=== PATIENT | female | born 1975 | race Caucasian/White ===

== ENCOUNTER → 2024-05-21 16:05 | Outpatient (REF) | payer OTHER, SELFPAY ==
[2024-05-21 17:12] LABS: Amylase 58 U/L (30-110); Lipase 57 U/L (23-300)
== END ==
LOC: REG 16:05
PROVIDERS: ATTENDING PHYSICIAN Nurse Practitioner Family
DX: R10.84 Generalized abdominal pain (principal)
CPT/HCPCS: 36415; 82150; 83690

== ENCOUNTER 2024-09-17 11:47 | Emergency (ER) | payer OTHER, SELFPAY ==
[2024-09-17 11:51] VITALS: BP 149/83
--- NOTE | 2024-09-17 12:11 | ED.GENMED ---
History of Present Illness
General
Chief Complaint: Abdominal Pain
Source: patient
Exam Limitations: none
Time Seen by Provider: 09/17/24 12:02
History of Present Illness
History of Present Illness:
49-year-old female with prior history ovarian cancer status post radiation, cholecystectomy appendectomy presents with abdominal pain bloating nausea and sour taste in her mouth. This started yesterday. 2 days ago she restarted her Mounjaro. She
had been off of it for quite some time. She is on the second dose. No blood in the stool. The pain is mainly in the upper abdomen. No other complaints at this time
Phy Exam
Physical Exam
Physical Exam:
General: Well-appearing female no acute respiratory distress
HEENT: Normocephalic atraumatic
Heart: Regular rate and rhythm
Lungs: Clear no wheeze
Abdomen soft tender to the upper abdomen and right mid abdomen. No guarding or rebound normal bowel sounds nondistended
Extremities: No cyanosis
Course
Orders/Labs/Results
Orders:
Orders
09/17/24 11:55
Electrocardiogram (*1) Urgent
Reason for Study: Abdominal Pain
EKG- Treatment ONCE
09/17/24 12:11
CT Abd/pelvis W Iv Cont Urgent
Comment:
Reason For Exam: abdominal pain
09/17/24 12:13
Ketorolac [Toradol] 15 mg IV NOW STA
09/17/24 12:19
Complete Blood Count/With Diff Urgent
Comprehensive Metabolic Panel Urgent
Lipase Urgent
Abnormal Lab Results
09/17/24
12:19
BUN 18 H mg/dl
(7-17)
Glucose 144 H mg/dl
(70-99)
AST 37 H U/L
(14-36)
ALT 50 H U/L
(0-35)
09/17/24 12:19
09/17/24 12:19
Vital Signs
Initial and Last Documented VS:
Initial Vital Signs
Temp Pulse Resp BP Pulse Ox
98.0 F 78 18 149/83 99
09/17/24 11:51 09/17/24 11:51 09/17/24 11:51 09/17/24 11:51 09/17/24 11:51
Last Documented Vital Signs
Temp Pulse Resp BP Pulse Ox
98.0 F 72 20 153/85 96
09/17/24 11:51 09/17/24 12:20 09/17/24 12:27 09/17/24 12:20 09/17/24 12:20
MDM/Problems Addressed
Differential Diagnosis Includes:
Abdominal pain nausea vomiting distention. Consider viral illness versus bowel versus adverse reaction to recently started Mounjaro. Will check lipase for pancreatitis.
Fluids ordered medicine ordered for pain and nausea. CT pending
*Critical Care Note
Total Time (30-74mins, 75-104mins- exclusive of procedures): Not Applicable
Update Note
Update Note:
Labs reviewed without significant finding. Lipase normal. CT negative. Patient feeling much better after Toradol and Zofran. Abdominal pain. Suspect possible adverse reaction to Mounjaro. Stable for discharge with follow-up
ED Attending Note
-
Portions of this chart may have been created with voice recognition software.� Occasional wrong word or��sound alike� substitutions may have occurred due to the inherent limitations of voice recognition software.
Discharge Plan
Departure
Patient Disposition: Home (Routine Discharge)
Date of Disposition: 09/17/24
Time of Disposition: 15:11
Patient with high blood pressure during this ER visit?: No
Discharge Problem:
Abdominal pain
Instructions: Abdominal Pain
Prescriptions:
No Action
alprazolam 0.25 mg Tablet
0.25 mg PO DAILY PRN (Reason: anxiety)
Rx Instructions:
03/11/2023, patient filled this medication on 09/23/2022 for 30 tablets according to PDMP.
escitalopram oxalate 20 mg Tablet
20 mg PO HS
glucosamine-chondroitin [Osteo Bi-Flex] 250-200 mg Tablet
2 tab PO HS
Visbiome 112.5 billion cell Capsule
1 cap PO HS
melatonin 10 mg Tablet
10 mg PO HS PRN (Reason: sleep)
Myrbetriq 50 mg Tablet Extended Release 24 Hr
50 mg PO HS
icosapent ethyl 1 gram Capsule
4 g PO HS
cv-su-gvwv-FA-Ca carb-vit K 18 mg iron-400 mcg-500 mg Tablet
1 tab PO HS
magnesium oxide 400 mg magnesium Tablet
400 mg PO HS
Medical Marijuana
0 inh PO DAILY
Rx Instructions:
03/11/2023, patient smokes and vapes medical marijuana daily and does not keep track of how many puffs they take; patient smokes flower form.
metformin 1,000 mg tablet
1,000 mg PO BIDWMEAL Qty: 60 0RF
(DME) Contour Next Test Strips Strip
Qty: 100 0RF
Rx Instructions:
As Directed
glipizide 5 mg Tablet
5 mg PO BID@0800,1700 Qty: 60 0RF
(DME) lancets [Color Lancets] 21 gauge Misc
Qty: 100 0RF
Rx Instructions:
As Directed
Referrals:
Sharon Neff CRNP [Family Provider] -
Activity Restrictions/Additional Instructions:
Drink plenty clear liquids. Consider antacids [id number]. We consider your current dose of your Mounjaro. Return if worse otherwise follow-up with your doctor.
Interventions
Interventions:
*Risk Screen - Suicide Last Done: 09/17/24 11:51
*General Assessment Last Done: 09/17/24 11:51
*Neglect/Abuse Screening Last Done: 09/17/24 11:51
*ED COVID-19 Vaccine History Last Done: 09/17/24 11:51
MI-Pgapmo-Vqebdyzrbk Assessment Last Done: 09/17/24 12:27
Discharge Date and Time
Print Language: GIBRALTARIAN
[2024-09-17 12:20] VITALS: BP 153/85
[2024-09-17] MEDS: TORADOL 15 MG IV (12:23)
[2024-09-17 12:38] LABS: % Basophils 0.6 % (0-2); % Eosinophils 3.5 % (0-6); % Immature Granulocytes 0.3 % (0-0.5); % Monocytes 6.8 % (1.7-9.3); % Neutrophils 64.8 % (42.2-75.2); Absolute Basophils 0.1 10^3/uL (0-0.2); Absolute Eosinophils 0.3 10^3/uL (0-0.7); Absolute Lymphocytes 1.9 10^3/uL (1.2-3.4); Absolute Monocytes 0.5 10^3/uL (0.1-0.6); Absolute Neutrophils 5.1 10^3/uL (1.4-6.5); Hematocrit 41.3 % (37.0-47.0); Hemoglobin 14.3 g/dL (12.0-16.0); Mean Corp Hgb Conc. 34.6 g/dL (33.0-37.0); Mean Corpuscular Volume 89.4 fL (81.0-99.0); Mean Platelet Volume 9.2 fL (7.4-10.4); Nucleated Red Blood Cells % 0 %; Platelet Count 217 10^3/uL (130-400); Red Blood Cell Count 4.62 10^6/uL (4.20-5.40); Red Cell Dist. Width 12.6 % (11.5-14.5); White Blood Cell Count 7.9 10^3/uL (4.8-10.8)
[2024-09-17 12:45] LABS: ALT (SGPT) 50 U/L (0-35); AST (SGOT) 37 U/L (14-36); Alkaline Phosphatase 86 U/L (38-126); Blood Urea Nitrogen 18 mg/dl (7-17); Calcium 9.8 mg/dl (8.4-10.2); Carbon Dioxide 26 mmol/L (22-30); Chloride 106 mmol/L (98-107); Glucose 144 mg/dl (70-99); Lipase 30 U/L (23-300); Potassium 4.4 mmol/L (3.5-5.1); Sodium 139 mmol/L (135-145); Total Bilirubin 0.6 mg/dl (0.2-1.3); Total Protein 6.5 g/dl (6.3-8.2); eGFR > 60.00
[2024-09-17 13:00] VITALS: BP 146/73
== END 2024-09-17 15:22 | disposition home or self-care (01) ==
LOC: EMR 11:47
PROVIDERS: Physician Assistant; EMERGENCY PHYSICIAN Emergency Medicine; FAMILY PHYSICIAN Nurse Practitioner Family
DX: R10.9 Unspecified abdominal pain (principal); Z79.899 Other long term (current) drug therapy; C56.9 Malignant neoplasm of unspecified ovary; Z90.49 Acquired absence of other specified parts of digestive tract; Z92.3 Personal history of irradiation
CPT/HCPCS: 96374; 99284; 74177; 80053; 83690; 85025; 93005; Q9967